=== PATIENT | male | born 1940 | race Caucasian/White ===

== ENCOUNTER 2023-05-06 11:49 | Emergency (ER) | payer MEDICARE, SELFPAY ==
--- NOTE | 2023-05-06 11:50 | ED.SOB ---
HPI - SOB/Dyspnea General Chief Complaint: Shortness of Breath/Dyspnea Stated Complaint: sob Time Seen by Provider: 05/06/23 11:50 Source: patient Mode of arrival: ambulatory Limitations: no limitations History of Present Illness HPI Narrative: Jesus is an 82-year-old male patient presenting to the clinic today with complaints of shortness of breath, bilateral lower extremity swelling, decreased appetite, and nausea. He reports shortness of breath has been going off and on for the past 4-6 months-states he is more short of breath on exertion at times he has a hard time taking a deep breath, bilateral lower extremity swelling has occurred over the last 2 weeks, and decreased appetite nausea over the last 2-3 days. He denies any known fever or chills. He denies any URI symptoms. Denies chest pain only. History of hypercholesterolemia, hypertension,and IA-3 stents 17 years ago. Reports he has not seen a primary care provider and 3 years as his PCP retired and he did not follow-up with a new provider. He does not currently take any medications. Blood pressure was 185/89 with a heart rate of 108. Related Data Home Medications Medication Instructions Recorded Confirmed No Home Medications 05/06/23 05/06/23 Allergies Allergy/AdvReac Type Severity Reaction Status Date / Time No Known Allergies Allergy Verified 05/06/23 11:51 Review of Systems Review of Systems: Pertinent positives per HPI. Patient denies any fever, chills, rash, headache, visual changes, dizziness, cough, runny nose, sore throat, chest pain, palpitations, nausea, vomiting, diarrhea, constipation, abdominal pain, or any urinary issues. PMFSH Comments At the time of my signature, I reviewed and agree with the nursing past medical, surgical, social, and family history. There is no relevant family history pertinent to the patient complaint. Exam Narrative: General: Well-developed, well nourished, in no apparent distress Head: Normocephalic, atraumatic. Cardio: Regular rate and rhythm, s1 and s2 normal, no murmur appreciated. Resp: Diminished in the bases otherwise clear, no rhonchi, rales, wheezing or rubs. Extremities: No deformity, 2+ pitting bilateral lower extremity edema, no cyanosis, capillary refill less than 2 seconds, peripheral pulses palpable and strong. Integumentary: Sebastian, warm, and dry, intact without lesion, no rashes. Course Course Emergency Course: Portions of this record may have been created with voice recognition software. Level of Care: Express Care Visit Vital Signs Vital signs: Vital signs reviewed Transfer Transfered to: [facility] Transportation: Other (private car= declined ems) Transfer rationale: SOB, BLE, decrease appetite, nausea Accepting physician: Dr. Garber Transfer comments: transfer via private car MDM - SOB/Dyspnea MDM Narrative Medical decision making narrative: At the time of visit patient is resting on the exam table. EKG was performed and shows sinus rhythm with occasional PVCs were without ST elevation or depression. Heart rate was 98. Recommend transfer to the ER for further evaluation and patient agrees to transfer. Contacted Dr. Garber at [facility] and report was given for continuity care and she accepts patient for transfer. Patient declined EMS. Patient to be transferred via private car by his family Differential Diagnosis Differential diagnosis: Likely acute exacerbation of chronic obstructive airways disease, congestive heart failure, community acquired pneumonia, asthma with exacerbation and pulmonary embolism ECG Data EKG #1: Attestation: I personally reviewed and interpreted this ECG as follows: ECG completion date: 05/06/23 ECG completion time: 12:15 Prior ECG tracings: not available for review Interpretation: EKG shows sinus rhythm heart rate of 98 with an occasional supraventricular PVCs. No sign of ST-elevation or depression. [place] interv
[2023-05-06 12:02] VITALS: BP 185/89; PULSE 108; RESP 20; TEMP 36.1; O2SAT 97
--- NOTE | 2023-05-06 12:18 | ECG_ITS ---
Measurements Intervals [place] Rate: 98 P: 24 PA: 180 QRS: 4 QRSD: 107 T: 137 QT: 341 QTc: 437 Interpretive Statements SINUS RHYTHM WITH OCCASIONAL SUPRAVENTRICULAR PREMATURE COMPLEXES POSSIBLE LEFT ATRIAL ENLARGEMENT [-0.1mV P WAVE IN V1/V2] LEFT VENTRICULAR HYPERTROPHY AND ST-T CHANGE [VOLTAGE CRITERIA PLUS ST/T ABNORMALITY] ABNORMAL ECG NO PREVIOUS ECG AVAILABLE FOR COMPARISON Electronically Signed On 05-06-2023 13:42:27 CDT by Sammy Henson M.D.
== END 2023-05-06 12:20 | disposition short-term general hospital (02) ==
PROVIDERS: Emergency Provider Nurse Practitioner Family
DX: R06.02 Shortness of breath (principal); R60.0 Localized edema; R63.0 Anorexia; R11.0 Nausea
CPT/HCPCS: 93005; 99213; G0463

== ENCOUNTER 2023-05-06 12:35 | Emergency (ER) | payer MEDICARE, SELFPAY ==
--- NOTE | ~2023-05-06 | XR_ITS ---
XR chest 1V DATE: 05/06/2023 16:56 INDICATION: Dyspnea. Bilateral lower extremity edema. TECHNIQUE: PA chest COMPARISON: 02/14/2006 portable AP chest FINDINGS: Heart size is within normal limits. This prominent calcification of the thoracic aortic arc h and descending thoracic aorta. No hilar or mediastinal enlargement is detected. Bilateral pleural calcifications are suggested. There are several opacities in the right mid to upper lung which may be pleural or pulmonary calcifications. Pulmonary mass lesion is not excluded. Consid er CT thorax for further evaluation. There is blunting of the costophrenic angles, left greater the right, which may indicate mild pleural effusions, left greater than right. There is left basilar infiltrate or atelectasis and right basila r atelectasis or scarring. IMPRESSION: Several mid to upper right lung opacities may be due to pleural calcification, calcified pulmonary nodule or small pulmonary mass lesion. Consider CT thorax for more definitive evaluation Bibasilar infiltrate or atelectasis and pleural effusions, left greater than right Aortic atherosclerosis Reviewed, dictated and finalized at location B. IMPRESSION: Several mid to upper right lung opacities may be due to pleural doug cification, calcified pulmonary nodule or small pulmonary mass lesion. Consider CT thorax for more definitive evaluation Bibasilar infiltrate or atelectasis and pleural effusions, left greater than ri ght Aortic atherosclerosis
[2023-05-06 12:54] VITALS: BP 161/98; PULSE 103; RESP 20; TEMP 36.2; O2SAT 97
--- NOTE | 2023-05-06 15:26 | ECG_ITS ---
Measurements Intervals [place] Rate: 106 P: 28 [place]: 157 QRS: 17 QRSD: 105 T: 194 QT: 332 QTc: 441 Interpretive Statements SINUS TACHYCARDIA POSSIBLE LEFT ATRIAL ENLARGEMENT [-0.1mV P-WAVE IN V1/V2] LEFT VENTRICULAR HYPERTROPHY AND ST-T CHANGE [VOLTAGE CRITERIA PLUS ST/T ABNORMALITY] COMPARED TO ECG 05/06/2023 12:15:52 SINUS TACHYCARDIA NOW PRESENT Electronically Signed On 05-07-2023 12:10:30 CDT by Leticia Martinez M.D.
--- NOTE | 2023-05-06 15:34 | ED.GENADULT ---
HPI - General Adult General Chief complaint: Shortness of Breath/Dyspnea <Angel Ely PA-C - Last Filed: 05/06/23 18:56> Stated complaint: SOB/BLE edema <SUKHI Vyas Last Filed: 05/06/23 18:56> Time Seen by Provider: 05/06/23 16:05 <Angel Ely PA-C - Last Filed: 05/06/23 18:56> Source: patient and family <SUKHI Vyas Last Filed: 05/06/23 18:56> Mode of arrival: wheelchair <SUKHI Vyas Last Filed: 05/06/23 18:56> Limitations: no limitations <Angel Ely PA-C - Last Filed: 05/06/23 18:56> History of Present Illness HPI narrative: This is an 82-year-old male with PMH of CAD, HTN, HLD with prior stent placement who presents to the ED with chief complaint of dyspnea and bilateral lower extremity swelling for 1 month. Reports that he becomes short of breath upon exertion, and feels this is worse over the last several days. Family is also concerned that he may be dehydrated. Patient states that he has had the lower extremity edema ongoing for the past month as well. Reports it is primarily in the ankles and lower legs. Denies having any chest pain. States he is not short of breath while sitting. Denies fevers, chills, calf pain, abdominal pain, nausea, vomiting, urinary symptoms. Has not seen activity therapy teacher in several years. <Angel Ely PA-C - Last Filed: 05/06/23 18:56> Related Data Allergies/adverse reactions: Allergies Allergy/AdvReac Type Severity Reaction Status Date / Time No Known Allergies Allergy Verified 05/06/23 11:51 <SUKHI Vyas Last Filed: 05/06/23 18:56> Review of Systems Review of Systems: All systems as dictated in HPI <SUKHI Vyas Last Filed: 05/06/23 18:56> Exam Narrative: GENERAL: Well-appearing, well-nourished, and in no acute distress. HEAD: Normocephalic, atraumatic. EYES: PERRLA and EOMI. ENT: Nares clear, no rhinorrhea or epistaxis. Mucous membranes moist. Oropharynx without tonsillar hypertrophy exudate or other lesions. NECK: Supple. No adenopathy or masses. CHEST: No respiratory distress. Saturation 97% on room air. Left lower lung field diminished. Otherwise clear to auscultation. HEART: Regular rate and rhythm. No murmur heard. Normal peripheral pulses. ABDOMEN: Soft, nontender, nondistended, normal active bowel sounds. MSK: Bilateral lower extremity 2-3+ pitting edema from level of ankle extending to knees. SKIN: Warm, dry, no rash. NEURO: Alert and oriented x3. No focal deficits. PSYCH: Normal mood and affect. <Angel Ely PA-C - Last Filed: 05/06/23 18:56> Course Vital Signs Vital signs: Vital Signs Temperature 97.2 F L 05/06/23 12:54 Pulse Rate 103 H 05/06/23 12:54 Respiratory Rate 20 05/06/23 12:54 Blood Pressure 161/98 H 05/06/23 12:54 Pulse Oximetry 97 05/06/23 12:54 Oxygen Delivery Room Air 05/06/23 12:54 Temperature 97.2 F L 05/06/23 12:54 Pulse Rate 100 05/06/23 19:28 Respiratory Rate 20 05/06/23 19:28 Blood Pressure 184/99 H 05/06/23 19:28 Pulse Oximetry 97 05/06/23 19:28 Oxygen Delivery Room Air 05/06/23 18:26 <SUKHI Vyas Last Filed: 05/06/23 18:56> Vital Signs Temperature 97.2 F L 05/06/23 12:54 Pulse Rate 103 H 05/06/23 12:54 Respiratory Rate 20 05/06/23 12:54 Blood Pressure 161/98 H 05/06/23 12:54 Pulse Oximetry 97 05/06/23 12:54 Oxygen Delivery Room Air 05/06/23 12:54 Temperature 97.2 F L 05/06/23 12:54 Pulse Rate 100 05/06/23 19:28 Respiratory Rate 20 05/06/23 19:28 Blood Pressure 184/99 H 05/06/23 19:28 Pulse Oximetry 97 05/06/23 19:28 Oxygen Delivery Room Air 05/06/23 18:26 <Emani Khoury MD - Last Filed: 05/11/23 21:20> Medical Decision Making MDM Narrative Medical decision making narrative: Medical screening exam performed by advanced practice provider in triage. <Angel Ely PA-C - Last Filed: 05/06/23
[2023-05-06 15:41] LABS: Basophils Percent Auto 0.4 % (0.2-1.2); Eosinophils Absolute Auto 0.1 K/mm3 (0-0.3); Eosinophils Percent Auto 1.1 % (0-4.4); Hematocrit 49.1 % (42.0-52.0); Hemoglobin 16.5 g/dL (14.0-18.0); Immature Granulocyte Absolute 0.01 K/mm3 (0.00-0.031); Immature Granulocyte Percent A 0.1 % (0-0.5); Lymphocytes Absolute Auto 1.68 K/mm3 (0.9-3.2); Lymphocytes Percent Auto 22.5 % (18.3-44.2); Mean Corpuscular HGB Conc 33.6 g/dl (32-36); Mean Corpuscular Hemoglobin 33.4 pg (26-34); Mean Corpuscular Volume 99.4 fl (80-100); Mean Platelet Volume 9.6 fl (7.4-10.4); Monocytes Absolute Auto 0.6 K/mm3 (0.1-0.6); Monocytes Percent Auto 8.2 % (2.6-8.5); Neutrophils Absolute Auto 5.1 K/mm3 (1.3-6.7); Neutrophils Percent Auto 67.7 % (45.5-73.1); Platelet Count Result 201 k/mm3 (150-375); Red Blood Count 4.94 M/mm3 (4.6-6.20); Red Cell Distribution Width 13.2 % (11.5-14.5); White Blood Count 7.5 K/mm3 (4.5-10.0)
[2023-05-06 15:53] LABS: Alanine Aminotransferase 20 U/L (6-50); Albumin Level 4.2 g/dL (3.5-5.1); Alkaline Phosphatase 81 U/L (38-126); Anion Gap 8 mmol/L (8-16); Aspartate Amino Transferase 33 U/L (17-59); Bilirubin,Total 1.2 mg/dL (0.2-1.3); Blood Urea Nitrogen 8 mg/dL (9-20); Calcium 9.3 mg/dL (8.4-10.2); Carbon Dioxide 26 mmol/L (22-30); Chloride 103 mmol/L (98-107); Estimated CRCL calculation 70 ml/min; Estimated Glomerular Filt Rate > 60; Glucose 104 mg/dL (65-110); Potassium 4.5 mmol/L (3.4-5.0); Sodium 137 mmol/L (137-145)
[2023-05-06 16:09] LABS: NT Pro B Type Natriuretic Pept 3860 pg/mL (19.9-100)
[2023-05-06 18:21] VITALS: BP 197/97; PULSE 104; RESP 21; O2SAT 100
[2023-05-06 18:26] VITALS: PULSE 105; O2SAT 100
[2023-05-06 19:28] VITALS: BP 184/99; PULSE 100; RESP 20; O2SAT 97
[2023-05-06 19:33] LABS: Troponin I 0.043 ng/mL (0.000-0.034)
[2023-05-06 19:56] LABS: Appearance Urine Cloudy (Clear); Bacteria Urine None Seen /hpf; Bilirubin Urine 1+ (Negative); Blood Urine Negative (Negative); Color Urine Dark Yellow (Yellow); Glucose Urine UA Negative (Negative); Ketones Urine 2+ mg/dL (Negative); Leukocyte Esterase Ur Trace LEU/UL (Negative); Need Manual Microscopic Reviewed; Nitrate Urine Negative (Negative); Protein Urine Trace mg/dL (Negative); Specific Grav Ur 1.018 (1.001-1.035); Squamous Epithelial Cell Urine Few /hpf (Few); WBC Urine 0-5 /hpf; pH Urine 5.5 (5.0-9.0)
[2023-05-06 20:01] LABS: Add Urine Microscopic? YES
[2023-05-06] MEDS: FUROSEMIDE 20 MG TABLET PO (20:24)
--- NOTE | 2023-05-06 20:31 | PC.NURSE ---
Pt advised of risks of leaving against medical advice by Dr. Khoury. Pt alert and oriented x 4. No distress noted. Pt with family. Pt ambulatory on leaving.
== END 2023-05-06 20:33 | disposition left against medical advice (07) ==
PROVIDERS: Physician Assistant; Emergency Provider Emergency Medicine
DX: R79.89 Other specified abnormal findings of blood chemistry (principal); R60.0 Localized edema; I25.10 Atherosclerotic heart disease of native coronary artery without angina pectoris; I10 Essential (primary) hypertension; E78.5 Hyperlipidemia, unspecified
CPT/HCPCS: 36415; 71045; 80053; 81001; 83880; 84484; 85025; 93005; 99284; A9270

== ENCOUNTER 2023-05-13 08:00 | Outpatient (CLI) | payer MEDICARE, SELFPAY ==
--- NOTE | ~2023-05-13 | CT_ITS ---
EXAMINATION:CT diagnostic chest w con DATE: 05/13/2023 08:36 INDICATION: Abnormal chest radiograph. TECHNIQUE: Computed tomography (CT) of the chest was performed with 75 mL Omnipaque 350 intravenous c ontrast. Automated exposure control and iterative reconstruction technique were employed. The dose-le ngth product (DLP) was 235.89 mGy-cm. COMPARISON: Chest single view 05/06/2023 FINDINGS: There is mild scarring at the lung apices. There is mild emphysema. There are small pleural effusions. There are calcified pleural plaques bilaterally, which may be seen with asbestosis exposu re. There is left ventricular enlargement of the heart. There are coronary artery calcifications. No pericardial effusion. There is a 3.9 cm cyst in left kidney. There is mild thoracic spondylosis. Ther e is mild chronic height loss of multiple vertebral bodies. IMPRESSION: 1. Mild emphysema. 2. Small pleural effusions. 3. Calcified bilateral pleural plaques correlating with the chest radiograph abnormality. This findin g may be seen with asbestos exposure. Reviewed, dictated and finalized at location A. IMPRESSION: 1. Mild emphysema. 2. Small pleural effusions. 3. Calcified bilateral pleural plaques correlating with the chest radiograph ab normality. This finding may be seen with asbestos exposure.
== END 2023-05-13 08:01 | disposition home or self-care (01) ==
PROVIDERS: PCP Nurse Practitioner Family; Visit Provider Internal Medicine Cardiovascular Disease
DX: R93.89 Abnormal findings on diagnostic imaging of other specified body structures (principal); J43.9 Emphysema, unspecified; J90 Pleural effusion, not elsewhere classified
CPT/HCPCS: 71260; Q9967

== ENCOUNTER 2023-06-03 00:51 | Day surgery (SDC) | payer MEDICARE, SELFPAY ==
[2023-05-31 16:00] VITALS: BMI 23.8
[2023-06-03] VITALS (18 sets, daily range): BP systolic 120–162; BP diastolic 62–94; PULSE 79–108; RESP 14–26; TEMP 37; O2SAT 94–99; BMI 23.6
[2023-06-03 07:27] LABS: Basophils Percent Auto 0.6 % (0.2-1.2); Eosinophils Absolute Auto 0.4 K/mm3 (0-0.3); Eosinophils Percent Auto 5.5 % (0-4.4); Hematocrit 46.7 % (42.0-52.0); Hemoglobin 15.5 g/dL (14.0-18.0); Immature Granulocyte Absolute 0.02 K/mm3 (0.00-0.031); Immature Granulocyte Percent A 0.3 % (0-0.5); Lymphocytes Absolute Auto 1.88 K/mm3 (0.9-3.2); Lymphocytes Percent Auto 26.5 % (18.3-44.2); Mean Corpuscular HGB Conc 33.2 g/dl (32-36); Mean Corpuscular Hemoglobin 32.9 pg (26-34); Mean Corpuscular Volume 99.2 fl (80-100); Mean Platelet Volume 9.8 fl (7.4-10.4); Monocytes Absolute Auto 0.7 K/mm3 (0.1-0.6); Neutrophils Absolute Auto 4.1 K/mm3 (1.3-6.7); Neutrophils Percent Auto 57.1 % (45.5-73.1); Platelet Count Result 200 k/mm3 (150-375); Red Blood Count 4.71 M/mm3 (4.6-6.20); Red Cell Distribution Width 12.4 % (11.5-14.5); White Blood Count 7.1 K/mm3 (4.5-10.0)
[2023-06-03 07:38] LABS: Anion Gap 5 mmol/L (8-16); Blood Urea Nitrogen 13 mg/dL (9-20); Calcium 9.1 mg/dL (8.4-10.2); Carbon Dioxide 31 mmol/L (22-30); Chloride 100 mmol/L (98-107); Estimated CRCL calculation 57 ml/min; Estimated Glomerular Filt Rate > 60; Glucose 124 mg/dL (65-110); Potassium 3.9 mmol/L (3.4-5.0); Sodium 136 mmol/L (137-145)
--- NOTE | 2023-06-03 08:42 | WPDMODSED ---
Moderate Sedation Note-Pt Data Patient Data Diagnosis: Severe left ventricular systolic dysfunction coronary artery disease with previous PCI Present Complaint: shortness of breath Procedure to be performed/Plan: left heart catheterization Allergies Allergy/AdvReac Type Severity Reaction Status Date / Time No Known Allergies Allergy Verified 06/03/23 07:13 Home Medications Medication Instructions Recorded Confirmed Type furosemide 20 mg tablet (Lasix) 20 mg PO DAILY #30 tabs 05/06/23 05/31/23 Rx nitroglycerin 0.4 mg sublingual 0.4 mg sublingual Q5M PRN chest 05/06/23 05/31/23 Rx tablet pain #10 tabs aspirin 81 mg chewable tablet 81 mg PO DAILY 05/31/23 05/31/23 History atorvastatin 20 mg tablet 20 mg PO DAILY 05/31/23 05/31/23 History carvedilol 3.125 mg tablet 3.125 mg PO BID 05/31/23 05/31/23 History sacubitril 24 mg-valsartan 26 mg 1 tablet PO BID 05/31/23 05/31/23 History tablet (Entresto) Current Medications: Active Medications Sodium Chloride (Normal Saline Iv) 500 mls @ 100 mls/hr IV CONT .Q5H JOYCE Sedation/Anesthesia: No previous sedation/anesthesia problems (including family history). [facility] Social History Social History Smoking status: Former smoker Tobacco type: cigarettes Second hand tobacco smoke exposure: No Smoking end date: 08/05/02 Alcohol use details: 3-4 beers a day Substance use: never Substance use type: does not use Living arrangements: with family Spiritual care concerns: No Mod Sed Physical Exam Physical Exam Pre Procedural Exam: Normal: Appearance ( pleasant elderly man no distress), Throat, Airway, Lungs, Heart Rate, Heart Rhythm, Neuro Exam and Extremities and Variation: Heart Size ( PMI laterally displaced) Hours since solid foods: 12 Hours since liquid intake: 12 Mallampati Classification: class II Internal Medicine - PN: Obj Da Vital Signs Vital Signs: Vital Signs - 24 hr 06/03/23 07:15 Temperature 37.0 C Pulse Rate 103 H Respiratory Rate 19 Blood Pressure 162/94 H Pulse Oximetry 99 Oxygen Delivery Room Air Meds/Results Medications: Active Medications Generic Name Dose Route Start Last Admin Trade Name Freq PRN Reason Stop Dose Admin Sodium Chloride 500 mls @ 100 mls/hr 06/03/23 07:00 Normal Saline Iv IV CONT .Q5H JOYCE Labs 06/03/23 07:12 06/03/23 07:12 Labs: Laboratory Results - last 24 hr 06/03/23 07:12 WBC 7.1 RBC 4.71 Hgb 15.5 Hct 46.7 MCV 99.2 MCH 32.9 MCHC 33.2 RDW 12.4 Plt Count 200 MPV 9.8 Immature Gran % (Auto) 0.3 Neut % (Auto) 57.1 Lymph % (Auto) 26.5 Crisp % (Auto) 10.0 H Eos % (Auto) 5.5 H Baso % (Auto) 0.6 Lymph # (Auto) 1.88 Crisp # (Auto) 0.7 H Eos # (Auto) 0.4 H Baso # (Auto) 0.0 Abs Immat Gran (auto) 0.02 Absolute Neuts (auto) 4.1 Absolute Nucleated RBC 0.0 Nucleated RBC % 0.0 Sodium 136 L Potassium 3.9 Chloride 100 Carbon Dioxide 31 H Anion Gap 5 L BUN 13 D Creatinine 1.00 Estim Creat Clear Calc 57 Estimated GFR > 60 Glucose 124 H Calcium 9.1 ASA Classification/Sedation ASA Classification/Sedation ASA Class: III Emergent: No Risks: Risks, benefits and alternatives explained and patient/family accepted plan for sedation. Patient re-evaluated immediately prior to sedation.
--- NOTE | 2023-06-03 09:12 | WPDCARDPROC ---
Cardiac Cath Procedure Note Date of procedure:: 06/03/23 Performing physician:: Sammy Henson MD Indication:: severe left ventricular systolic dysfunction coronary disease with previous PCI Brief clinical history:: this is an 82-year-old man with coronary disease previous interventional revascularization to the LAD and right coronary artery in the remote past. He now presents with worsening shortness of breath and has been found to have severe left ventricular systolic dysfunction. In this setting a follow-up angiogram has been recommended Procedure Procedure performed:: left ventriculogram coronary angiogram Sedation/Medication given:: fentanyl 25 mg Versed 2 mg case start time 8:53 a.m. case end time 9:09 a.m. sedation provided by Karlene Humphrey RN, trained observer Access site:: right femoral artery Estimated blood loss:: 25 cc Procedure note:: patient was brought to the cardiac catheterization lab in the postabsorptive state where the right femoral triangle was prepared and draped usual fashion. Anesthesia was provided with 1% lidocaine infiltrated locally. Using the modified Seldinger technique a 5 Green[place]ic sheath was placed into the femoral artery. After this left heart catheterization was carried out. A 5 Green[place]ic angled pigtail catheter was used to measure left-sided hemodynamics and to inject LV g in the 30 degree WEIR projection. Following this the standard FL 4 catheter was used to engage inject the left coronary artery in that an to JR4 catheter to the right coronary artery. Following this the cine angiograms were reviewed and the case was terminated. Patient was taken to the holding area for manual sheath removal. This procedure was well tolerated and uncomplicated. No evidence of groin hematoma as the patient left the cardiac catheterization lab. Findings:: Hemodynamics: Central aortic pressure is 170 over 68 with evidence of pulses alternans. left ventricle 170 over 2 end-diastolic pressure 18, no gradient across the aortic valve upon pullback left ventricle: The LV is moderately dilated there is severe global systolic dysfunction identified with a global ejection fraction of 25-30%. The left coronary artery is noted to be heavily calcified prior to any angiography being performed the left main coronary artery is medium in caliber and nicely patent the left anterior descending is heavily calcified there is a stent in the proximal LAD which remains nicely patent there is a very small diagonal branch in this segment which has proximal 80% stenosis. Distal to this there is 95% stenosis in the mid LAD and 90-95% stenosis at the origin of the large diagonal branch in this region of stenosis. Distal to this the LAD has mild to moderate diffuse disease but no discrete high-grade lesions. The circumflex is a medium caliber artery giving rise to a OM 1 branch that has a proximal 80% stenosis. The AV groove portion of the circumflex distal this is fairly small and has a 80-90% stenosis after the OM1 origin. The right coronary artery is dominant to the posterior circulation it has a proximal burt's crook deformity after which there is visible stent material from previous PCI. The right coronary artery is 100% occluded proximal to this. This is a chronic occlusion with evidence of [id number] collateral filling to the RPDA and RPL branches. Conclusion:: 1. Right coronary dominant circulation with severe three-vessel coronary artery disease 2. patent proximal LAD stent but 90-95% stenosis in the mid LAD as well as 95% stenosis at the origin of the major diagonal branch in this area of stenosis. This is a heavily calcified vessel. 3. 80-90% stenosis in the OM1 branch of the circumflex as well as in the AV groove portion of the circumflex distal to this OM1 origin 4. total occlusion of the proximal right coronary artery with left to right collateral filling of the RPD
[2023-06-03] MEDS: LABETALOL HCL INJ 100 MG/20 ML VIAL 10 MG IV PUSH (09:47)
== END 2023-06-03 15:16 | disposition home or self-care (01) ==
PROVIDERS: PCP Nurse Practitioner Family; Visit Provider Specialist
PROC: 4A023N7 Measurement of Cardiac Sampling and Pressure, Left Heart, Percutaneous Approach (ICD-10-PCS; CPT 93452; principal; 2023-06-03 08:30)
DX: I25.10 Atherosclerotic heart disease of native coronary artery without angina pectoris (principal); I25.82 Chronic total occlusion of coronary artery; I35.0 Nonrheumatic aortic (valve) stenosis; Z95.5 Presence of coronary angioplasty implant and graft
CPT/HCPCS: 36415; 80048; 85025; 93458; C1887; C1894; J1644; J2250; J3010; J7040

== ENCOUNTER 2023-12-23 10:21 | Emergency (ER) | payer MEDICARE, SELFPAY ==
--- NOTE | ~2023-12-23 | XR_ITS ---
Portable chest x-ray Comparison: 05/06/2023 Clinical History: Dyspnea Findings: Small left pleural effusion present. Probable calcified left midlung pleural plaque. Right lung clear. Cardiomediastinal silhouette is stable. Bones and soft tissues are unremarkable. Impression: Small left pleural effusion. Probable calcified left midlung pleural plaque. Reviewed, dictated and finalized at [facility]. Impression: Small left pleural effusion. Probable calcified left midlung pleural plaque.
[2023-12-23 10:33] VITALS: BP 127/79; PULSE 119; RESP 18; TEMP 36.6; O2SAT 98
--- NOTE | 2023-12-23 11:04 | ECG_ITS ---
SEE SCANNED COPY FOR CONFIRMED REPORT MTDD
[2023-12-23 11:18] LABS: Basophils Percent Auto 0.4 % (0.2-1.2); Eosinophils Absolute Auto 0.3 K/mm3 (0-0.3); Eosinophils Percent Auto 4.2 % (0-4.4); Hematocrit 36.9 % (42.0-52.0); Hemoglobin 12.7 g/dL (14.0-18.0); Immature Granulocyte Absolute 0.03 K/mm3 (0.00-0.031); Immature Granulocyte Percent A 0.4 % (0-0.5); Lymphocytes Absolute Auto 0.97 K/mm3 (0.9-3.2); Lymphocytes Percent Auto 12.5 % (18.3-44.2); Mean Corpuscular HGB Conc 34.4 g/dl (32-36); Mean Corpuscular Hemoglobin 32.8 pg (26-34); Mean Corpuscular Volume 95.3 fl (80-100); Mean Platelet Volume 9.2 fl (7.4-10.4); Monocytes Absolute Auto 0.6 K/mm3 (0.1-0.6); Monocytes Percent Auto 8.1 % (2.6-8.5); Neutrophils Absolute Auto 5.8 K/mm3 (1.3-6.7); Neutrophils Percent Auto 74.4 % (45.5-73.1); Platelet Count Result 271 k/mm3 (150-375); Red Blood Count 3.87 M/mm3 (4.6-6.20); Red Cell Distribution Width 11.9 % (11.5-14.5); White Blood Count 7.8 K/mm3 (4.5-10.0)
[2023-12-23 11:34] LABS: Alanine Aminotransferase 17 U/L (6-50); Albumin Level 3.8 g/dL (3.5-5.1); Alkaline Phosphatase 83 U/L (38-126); Anion Gap 6 mmol/L (4-12); Aspartate Amino Transferase 27 U/L (17-59); Bilirubin,Total 0.8 mg/dL (0.2-1.3); Blood Urea Nitrogen 14 mg/dL (9-20); Calcium 9.1 mg/dL (8.4-10.2); Carbon Dioxide 27 mmol/L (22-30); Chloride 104 mmol/L (98-107); Estimated CRCL calculation 56 ml/min; Estimated Glomerular Filt Rate > 60; Glucose 185 mg/dL (65-110); Potassium 3.9 mmol/L (3.4-5.0); Sodium 137 mmol/L (137-145)
[2023-12-23 11:39] VITALS: RESP 15; O2SAT 98
[2023-12-23 11:42] LABS: NT Pro B Type Natriuretic Pept 1490 pg/mL (19.9-100)
[2023-12-23 11:55] VITALS: BP 147/78; PULSE 95; RESP 20; O2SAT 97
--- NOTE | 2023-12-23 11:56 | ED.GENADULT ---
HPI - General Adult General Chief complaint: Unspecified Stated complaint: lack of appetite Time Seen by Provider: 12/23/23 11:03 History of Present Illness HPI narrative: Patient presents with a lack of appetite, he has no other complaints, a few weeks ago he had a cough which got better, and a few days ago started feeling like he did not want to eat. He has no trouble with taste or smell. Has no other complaints whatsoever has been drinking tea I home and trying keep hydrated and yesterday started taking shakes ensure. Has also had cataract Related Data Home Medications Medication Instructions Recorded Confirmed aspirin 81 mg chewable tablet 81 mg PO DAILY 05/31/23 07/08/23 atorvastatin 20 mg tablet 20 mg PO DAILY 05/31/23 07/08/23 sacubitril 24 mg-valsartan 26 mg 1 tablet PO BID 05/31/23 07/08/23 tablet (Entresto) carvedilol 3.125 mg tablet 6.25 mg PO BID 08/02/23 Allergies Allergy/AdvReac Type Severity Reaction Status Date / Time No Known Allergies Allergy Verified 12/23/23 10:22 Review of Systems Review of Systems: All systems reviewed & are unremarkable except as noted in HPI and below PMFSH Family History Family History (Updated 07/12/23 @ 11:21 by RT Dana(R)) Mother Cancer Social History Social History (Updated 07/12/23 @ 11:27 by Tanesha Carmen RT(R)) Smoking status: Former smoker Tobacco type: cigarettes Second hand tobacco smoke exposure: No Smoking end date: 08/05/02 Alcohol intake: current Alcohol use details: 2 beers a day Substance use: never Substance use type: does not use Living arrangements: with family Spiritual care concerns: No Exam Narrative: EXAMINATION OF ORGAN SYSTEMS/BODY AREAS: Constitutional: Vital signs per nursing GENERAL:[No acute distress, non-toxic appearing.] HEAD: Normal with no signs of head trauma. EYES: EOMI, conjunctiva normal ENT: Hearing grossly intact LUNGS: Nonlabored breathing. HEART: [Regular rate and rhythm] ABD: [Soft], [nontender to palpation] EXT: Normal range of motion SKIN: [No rashes or lesions.] NEURO: [Alert and oriented x 3. No gross focal sensory or strength deficits.] PSYCH: Normal affect Course Vital Signs Vital signs: Vital Signs Temperature 97.8 F 12/23/23 10:33 Pulse Rate 119 H 12/23/23 10:33 Respiratory Rate 18 12/23/23 10:33 Blood Pressure 127/79 12/23/23 10:33 Pulse Oximetry 98 12/23/23 10:33 Oxygen Delivery Room Air 12/23/23 10:33 Temperature 98.4 F 12/23/23 12:07 Pulse Rate 91 12/23/23 12:07 Respiratory Rate 22 H 12/23/23 12:07 Blood Pressure 165/85 H 12/23/23 12:07 Pulse Oximetry 98 12/23/23 12:07 Oxygen Delivery Room Air 12/23/23 10:33 Medical Decision Making MDM Narrative Medical decision making narrative: Patient presenting with loss of appetite, he is well-appearing here in no distress, I will obtain workup to ensure no electrolyte abnormality or other cause, and since he has not been taking his medications last few days, I will make sure he is not fluid overloaded. Chest x-ray here just shows a small pleural effusion which is similar to his last chest x-ray, BNP is 50 100 which is actually lower than his usual, I do not see any signs of dehydration on his labs nor any other concerning issue. Patient continues to be very well appearing, have had a long discussion with him and his children at bedside and they are agreeable to outpatient management with return precautions. Vital Signs Vital Signs: Vital Signs Temperature 97.8 F 12/23/23 10:33 Pulse Rate 119 H 12/23/23 10:33 Respiratory Rate 18 12/23/23 10:33 Blood Pressure 127/79 12/23/23 10:33 Pulse Oximetry 98 12/23/23 10:33 Oxygen Delivery Room Air 12/23/23 10:33 Temperature 98.4 F 12/23/23 12:07 Pulse Rate 91 12/23/23 12:07 Respiratory Rate 22 H 12/23/23 12:07 Blood Pressure 165/85 H 12/23/23 12:07 Pulse Oximetry 98 12/23/23 12:
[2023-12-23 12:07] VITALS: BP 165/85; PULSE 91; RESP 22; TEMP 36.9; O2SAT 98
== END 2023-12-23 12:08 | disposition home or self-care (01) ==
PROVIDERS: Emergency Provider Emergency Medicine; PCP Nurse Practitioner Family
DX: R63.0 Anorexia (principal); Z87.891 Personal history of nicotine dependence; Z79.82 Long term (current) use of aspirin; I45.9 Conduction disorder, unspecified; R94.31 Abnormal electrocardiogram [ECG] [EKG]
CPT/HCPCS: 36415; 71045; 80053; 83880; 85025; 93005; 99283